=== PATIENT | male | born 1970 | race Two or more races ===

== ENCOUNTER 2025-02-28 17:40 | Inpatient (IN) | payer MEDICAID, SELFPAY ==
[2025-02-28 17:43] VITALS: BMI 25.4
[2025-02-28 17:51] VITALS: BP 122/86; PULSE 72; RESP 18; TEMP 36.9; O2SAT 99
--- NOTE | 2025-02-28 17:51 | PC.NURSE ---
Patient to er in Triage alert called stroke alert, patient c/o weakness, blurry vision, and dizziness since 1339, patient was work eating with sudden onset of symptoms. patient to ct via radha with Rosie SAMS, teleneurology activated
--- NOTE | 2025-02-28 17:53 | PD.EDRME ---
Rapid Medical Screening Exam RME Arrival date/time: 02/28/25 17:40 Chief Complaint: Neuro Symptoms/Deficit Vital signs: Vital Signs Temperature 98.4 F 02/28/25 17:51 Pulse Rate 72 02/28/25 17:51 Respiratory Rate 18 02/28/25 17:51 Blood Pressure 122/86 H 02/28/25 17:51 Pulse Oximetry (%) 99 02/28/25 17:51 Oxygen Delivery Method Room Air 02/28/25 17:51 RME Narrative: 54-year-old male with no known past medical history or allergies presents to the Emergency Department with sudden onset of dizziness and generalized weakness that began at approximately 1:40 PM. He also reports mild bilateral blurred vision. Blood glucose was 241. Exam is nonfocal.
--- NOTE | 2025-02-28 17:54 | XR_ITS ---
Examination: CTA carotids with intravenous contrast CTA brain, head with intravenous contrast. 2-D sagittal, coronal reconstructions. 3-D reconstructions. Exam date and time: February 28, 2025, 1817 hrs. Indications: Stroke alert, onset blurred vision generalized weakness today CTDI: vol (mGy) 29.2 DLP: (mGycm) 479 Technique: Multiple CTA axial brain, head carotid images post intravenous contrast injection 100 cc, [id number]. 2-D sagittal, coronal reconstructions. 3-D reconstructions, 3-D post processing including vascular maximum intensity projection images. Low dose protocols were performed. One or more of the following dose reduction techniques were used; automated exposure control, adjustment of the mA and/or KV according to patient size, use of iterative reconstruction technique. Findings: No significant common carotid carotid bifurcation or internal carotid artery stenoses Dominant right vertebral artery in the neck with no critical stenoses Intracranial vertebral arteries basilar artery and posterior cerebral branches fill with no large vessel occlusions Juxtasellar portions internal carotid arteries M1 segments middle cerebral arteries middle cerebral artery trifurcation vessels and anterior cerebral arteries fill with no large vessel occlusions Impression: No significant neck arterial stenoses No cerebral large vessel arterial occlusions or thrombus
--- NOTE | 2025-02-28 17:54 | XR_ITS ---
Examination: CT brain head without contrast. 2-D sagittal coronal reconstructions Date and time of exam:February 28, 2025, 1803 hrs. Indications: Stroke alert today CTDI: vol (mGy):50.2 DLP: (mGycm):978 Technique: Multiple CT axial sections of the brain have been obtained, 5 mm slice thickness. Contrast has not been administered. 2-D sagittal, coronal reconstructions have been obtained Low dose protocols were performed. One or more of the following dose reduction techniques were used; automated exposure control, adjustment of the mA and/or KV according to patient size, use of iterative reconstruction technique. Findings: No significant ventricular enlargement. Intra-axial or extra-axial hemorrhage density is not seen. No mass effect or midline shift Basal cisterns are not remarkable. Fourth ventricle is midline. Cranial vault intact. Impression: Negative for acute hemorrhage, mass effect or midline shift
--- NOTE | 2025-02-28 17:57 | EDNOTE_ITS ---
Neuro Symptoms Deficit-RME/HPI General Chief Complaint: Neuro Symptoms/Deficit Stated Complaint: BLURRY VISION AT 1300,DIZZY/SHAKING AT 1500 TODAY Time Seen by Provider: 02/28/25 17:56 Arrival date/time: 02/28/25 17:40 RME / HPI RME / HPI Narrative: 54-year-old male with past medical history of diabetes mellitus presents to the Emergency Department with sudden onset of dizziness and generalized weakness that began at approximately 1:40 PM. He also reports mild bilateral blurred vision. Blood glucose was 241. Exam is nonfocal. Denies any other complaints no medication was taken prior to ER visit. Patient denies any fall or trauma denies any fever. Denies any slurring of speech patient is ambulatory. Related Data Previous Rx's ?Medication ?Instructions ?Recorded metformin 500 mg tablet 500 mg PO BID #60 tabs 08/23 albuterol sulfate 90 mcg/actuation 2 inh inhalation Q4 H PRN 02/26/22 aerosol inhaler (Proventil HFA) bronchospasm #6.7 gram s azithromycin 250 mg tablet See Rx Instructions PO .COM PLEX #6 02/26/22 (Zithromax Z-Naldo) tabs promethazine-DM 6.25 mg-15 mg/5 mL 5 ml PO Q6H #240 mL 02/26/22 oral syrup Allergies Allergy/AdvReac Type Severity Reaction Status Date / Time No Known Allergies Allergy Verified 02/28/25 17:46 Review of Systems Review of Systems Narrative Review of Systems: Review of system reviewed and within normal limits except mentioned in HPI ED Exam Narrative Physical exam: VITAL SIGNS: Reviewed. GENERAL APPEARANCE: Alert and interactive, follows commands, no acute distress, HEAD AND FACE: Non-traumatic. ENT: PERRL, pink conjunctivitis, eyelid no trauma, Mucous membrane moist. NECK: Supple, nontender, no nuchal rigidity. CHEST: No tenderness, no crepitus, no paradoxical movement, no retractions. LUNGS: Clear, well ventilated, symmetric, no rales, no wheezing, no ronchi, no stridor, good breath sounds bilaterally. HEART: Regular rate, regular rhythm, no murmur, no gallops. ABDOMEN: Soft, positive bowel sounds, nondistended, no guarding, nontender, no rebound, no masses, RECTAL: Deferred. GENITAL: Deferred. NEUROLOGICAL: Gross motor function intact sensory function intact, Appropriate for age. MUSCULOSKELETAL: low back nontender, full range of motion. EXTREMITIES: Nontender, full range of motion. SKIN: Color pink, dry, no rash, no lacerations, no abrasions, no contusions. LYMPHATICS: Deferred. Course Quality Measures none Orders Category Date Time Status Bedside Blood Glucose NOW Care 02/28/25 17:54 Active COVID-19 Screening Questionnaire NOW Care 02/28/25 20:17 Active Manager Trade NOW Care 02/28/25 17:54 Active Continuous Pulse Oximetry NOW Care 02/28/25 17:54 Completed Decision to Admit X1 Care 02/28/25 20:17 Active Insert IV NOW Care 02/28/25 17:54 Active NIH Stroke Scale now Care 02/28/25 17:54 Active NPO NOW Care 02/28/25 17:54 Active Neuro Check Q15MIN Care 02/28/25 17:54 Completed Nurse Swallow Screen x1 Care 02/28/25 17:54 Active Consult to Neurology / Tele-Neurology Routine Cons 02/28/25 17:[address] angio stroke protocol Stat Exams 02/28/25 17:[address] stroke protocol Stat Exams 02/28/25 17:54 Completed Alcohol, Blood Medical Stat Lab 02/28/25 17:57 Completed B-Type Natriuretic Peptide Stat Lab 02/28/25 17:57 Completed CBC Stat Lab 02/28/25 17:57 Completed Comprehensive Metabolic Panel Stat Lab 02/28/25 17:57 Completed Drug Screen,Urine Stat Lab 02/28/25 19:37 Received Magnesium Stat Lab 02/28/25 17:57 Completed Partial Thromboplastin Time Stat Lab 02/28/25 17:57 Completed Prothrombin Time with INR Stat Lab 02/28/25 17:57 Completed Troponin I Stat Lab 02/28/25 17:57 Completed Urinalysis Stat Lab 02/28/25 19:37 Completed Urine Culture Stat Lab 02/28/25 19:37 Received Aspirin [Ecotrin] Med 02/28/25 18:25 Discontinued 81 mg PO X1 ONE Sodium Chloride 0.9% 1000 ml [Ns] 1,000 ml Med 02/28/25 18:00 Active IV Q10H Vital Signs Vital signs: Vital Signs Temperature 98.4 F 02/28/25 17:51 Pulse Rate 72 02/28/25 17:51 Respiratory Rate 18 02/28/25 17:51 Blood Pressure 122/86 H 02/28/25 17:51 Pulse Oximetry (%) 99 02/28/25 17:51 Oxygen Delivery Method Room Air 02/28/25 17:51 Neuro Symptoms / Deficit MDM Narrative [facility] Narrative:: 54-year-old male with past medical history of diabetes mellitus presents to the Emergency Department with sudden onset of dizziness and generalized weakness that began at approximately 1:40 PM. He also reports mild bilateral blurred vision. Blood glucose was 241. Exam is nonfocal. Denies any other complaints no medication was taken prior to ER visit. Patient denies any fall or trauma denies any fever. Denies any slurring of speech patient is ambulatory. Stroke alert was initiated right away. CT head came back unremarkable CT angiogram of the head and neck came back unremarkable. Patient's workup also came back normal. I was able to talk to the teleneurologist, who told me that patient is not a candidate for thrombolytics due to timeframe and symptoms is mild and resolving. Recommendation is just aspirin 81 mg p.o. Plan of care discussed with the patient who agrees to be admitted. Discussed case with hospitalist, who admitted the patient. Patient data External records reviewed:: None Clinical information provided by:: patient Social determinants that could affect healthcare access:: none Patient has the following chronic illnesses:: Diabetes mellitus How is presenting disease/condition affected by chronic disease/condition?: exacerbated by Evaluation data The following diagnostics were reviewed and interpreted by me:: lab results and radiology exam(s) Lab and/or radiology exams considered but not ordered:: None Interpretation Summary: See results [facility] Medications / Prescriptions Medications or Prescriptions considered but not ordered:: None Medication administrations:: Medication Administration History Sodium Chloride (Ns) 1,000 mls @ 60 mls/hr IV Q10H ANGEL Stop: 03/30/25 17:59 Last Admin: 02/28/25 19:20 Dose: 60 mls/hr Documented By: BD Discontinued Medications Aspirin (Aspirin Ec 81 Mg Tabec) 81 mg PO X1 ONE Stop: 02/28/25 18:26 Last Admin: 02/28/25 19:20 Dose: 81 mg Documented By: BD Aspirin IV fluids for hydration Consultations Consultation(s) initiated? (list below): Yes Consultation #1 (Physician, Specialty, Details): Teleneurologist thank you Diagnosis Neuro Differential Diagnosis: cerebrovascular accident, multiple sclerosis and transient cerebral ischemia Most likely diagnosis given after review of the tests above:: Strokelike symptoms Admission Indicated Admission indicated?: not indicated Admission Request Was there a request for admission?: Yes Admission Attestation Admission request attestation: Discussed case with Hospitalist service regarding admission. Discussed patients ED course, exam findings, labs, and radiology results. The Hospitalist [agrees to accept the patient for admission. Disposition Plan Disposition Plan: Transfer Discharge Plan Plan Patient Disposition: Admit Acute Care w/in Hospital Prescriptions/Referrals Prescriptions/Med Rec: No Action metformin 500 mg tablet 500 mg PO BID Qty: 60 0RF azithromycin [Zithromax Z-Naldo] 250 mg tablet See Rx Instructions PO .COMPLEX Qty: 6 0RF Rx Instructions: take 500 mg today (day 1), then 250 mg for 4 days (days 2-5) albuterol sulfate [Proventil HFA] 90 mcg/actuation HFA aerosol inhaler 2 inh inhalation Q4H PRN (Reason: bronchospasm) Qty: 6.7 0RF promethazine-DM 6.25-15 mg/5 mL syrup 5 ml PO Q6H Qty: 240 0RF Referrals: Saul Aldrich MD [Primary Care Provider] - In 1 week Problem List Clinical Impression: Stroke-like symptom Patient/Caregiver Discharge Instructions Print Language: Mohawk Stand Alone Forms: Genevieve Award Info., Patient Portal Info Letter
[2025-02-28 18:09] LABS: Basophils # (Auto) 0.0 Thou/mm3 (0.0-0.2); Basophils % (Auto) 0 % (0-2.5); Eosinophils # (Auto) 0.1 Thou/mm3 (0.0-0.5); Eosinophils % (Auto) 1 % (0-10); Hematocrit 41.0 % (41.0-53.0); Hemoglobin 14.1 g/dL (13.5-16.0); Immature Granulocytes Auto 0.04 Thou/mm3 (0.00-0.00); Lymphocytes # (Auto) 1.5 Thou/mm3 (1.0-4.8); Lymphocytes % (Auto) 19 % (10-50); Mean Corpuscular HGB Conc 34.4 g/dl (31.0-37.0); Mean Corpuscular Hemoglobin 32.1 pg (25.0-35.0); Mean Corpuscular Volume 93 fL (80-100); Monocytes # (Auto) 0.5 Thou/mm3 (0.0-0.8); Monocytes % (Auto) 7 % (0-12); Neutrophils # (Auto) 5.6 Thou/mm3 (1.8-7.7); Neutrophils % (Auto) 72 % (37-80); Nucleated Red Blood Cell # 0.00 Thou/mm3 (0.00-0.00); Nucleated Red Blood Cell % 0 /100 WBC (0); Platelet Count 245 Thou/mm3 (140-440); RDW Standard Deviation 42.4 fL (35.1-43.9); Red Blood Count 4.39 Miln/mm3 (4.50-5.90); White Blood Count 7.8 Thou/mm3 (3.8-10.6)
[2025-02-28 18:30] LABS: B-Type Natriuretic Peptide 20 pg/mL (0-100)
[2025-02-28 18:32] LABS: Alanine Aminotransferase 20 U/L (10-49); Albumin, Serum 4.1 gm/dL (3.5-5.0); Albumin/Globulin Ratio 1.7 (1.2-2.2); Alcohol, Blood Medical < 3.0 mg/dL (0-10.0); Alkaline Phosphatase 133 U/L (46-116); Anion Gap 11 (7-16); Aspartate Amino Transferase 23 U/L (0-34); BUN/Creatinine Ratio 14 Ratio (12-20); Bilirubin,Total 0.9 mg/dL (0.3-1.2); Blood Urea Nitrogen 13 mg/dL (9-23); Calcium 9.4 mg/dL (8.3-10.6); Calcium (Corrected) 9.4 mg/dL (8.5-10.1); Carbon Dioxide 24.6 mMol/L (20.0-31.0); Chloride 103 mMol/L (98-107); Creatinine (Component) 0.9 mg/dL (0.6-1.3); Estimated Creatinine Clearance 79.5 mL/min (>60); Globulin 2.4 gm/dL (2.3-3.5); Glucose 234 mg/dL (74-106); INR 0.9 (0.9-1.3); Magnesium 1.8 mg/dL (1.6-2.6); Osmolality,Calculated 285 (275-295); Partial Thromboplastin Time 25.5 Seconds (22.0-36.0); Potassium 3.8 mMol/L (3.4-5.1); Prothrombin Time 9.8 Seconds (9.0-12.2); Sodium 139 mMol/L (136-145); Total Protein 6.5 gm/dL (5.7-8.2); Troponin I < 0.002 ng/mL (0.0-0.045); eGFR > 60 See Note
--- NOTE | 2025-02-28 18:34 | ESCONSULT_ITS ---
Tele Neuro Consultation Consultation Date 02/28/25 Most Recent Vital Signs Last Vital Signs Temp 98.4 F 02/28/25 17:51 Pulse 72 02/28/25 17:51 Resp 18 02/28/25 17:51 BP 122/86 H 02/28/25 17:51 Pulse Ox 99 02/28/25 17:51 O2 Del Method Room Air 02/28/25 17:51 Laboratory-Coagulation Panel PT 9.8 Seconds (9.0-12.2) 02/28/25 17:57 INR 0.9 (0.9-1.3) 02/28/25 17:57 APTT 25.5 Seconds (22.0-36.0) 02/28/25 17:57 Consultation Narrative [facility] Patient Name:???GROVER STOVER Date of :???1970 Identification Number:??? Date of Service:???02/28/2025 17:54:15 Diagnosis:?H53.8 - Blurred Vision ?R42 - Dizziness/ Vertigo/ Giddiness Impression: ?54 y/o man with diabetes who presents w/ dizziness/spinning, blurred vision, generalized weakness. He is improving but not back to baseline. ? ??posterior circulation TIA vs metabolic derangement ? ?No thrombolytic/out of window and symptoms resolving/nondisabling. Will be admitted for further workup. Our recommendations are outlined below. Recommendations: ? Stroke/Telemetry Floor ? Neuro Checks (Q4) ? Bedside Swallow Eval ? DVT Prophylaxis ? IV Fluids, Normal Saline ? Head of Bed 30 Degrees ? Euglycemia and Avoid Hyperthermia (PRN Acetaminophen) ? Initiate or continue Aspirin 81 MG daily ? Antihypertensives PRN if Blood pressure is greater than 220/120 or there is a concern for End organ damage/contraindications for permissive HTN. If blood pressure is greater than 220/120 give labetalol PO or IV or Vasotec IV with a goal of 15% reduction in BP during the first 24 hours. ?MRI brain w/o ?Routine cta head/neck Sign Out: ? Discussed with Emergency Department Provider Advanced Imaging:Advanced Imaging Deferred because: Non-disabling symptoms as verified by the patient; no cortical signs so not consistent with LVO Metrics: Last Known Well: 02/28/2025 13:40:00 Dispatch Time: 02/28/2025 17:54:15 Arrival Time: 02/28/2025 17:40:00 Initial Response Time: 02/28/2025 18:00:29Symptoms: dizziness/spinning, blurred vision, generalized weakness . Initial patient interaction: 02/28/2025 18:00:30 NIHSS Assessment Completed: 02/28/2025 18:12:36Patient is not a candidate for Thrombolytic. Thrombolytic Medical Decision: 02/28/2025 18:12:37Patient was not deemed candidate for Thrombolytic because of following reasons: LKW outside 4.5 hr window. . Stroke severity too mild (non-disabling) . CT Head: I personally reviewed all the CT images that were available to me and it showed: no acute process Primary Provider Notified of Diagnostic Impression and Management Plan on: 02/28/2025 18:33:10 History of Present Illness:Patient is a 54 year old Male. Patient was brought by private transportation with symptoms of dizziness/spinning, blurred vision, generalized weakness . Grover Stover is a 54 y/o man with diabetes who presents w/ dizziness/spinning, blurred vision, generalized weakness. 13:40 while eating lunch is time of symptom onset.When describing the dizziness, the patient clarified that everything was just turning rather than feeling lightheaded. The patient wondered if their blood sugar had dropped, despite having just eaten but didn't check it. The patient was able to walk into the emergency department and could stand and transfer to the bed independently. The patient indicates that the symptoms, particularly the blurry vision and dizziness, are still present but a little less intense than at onset. ? Past Medical History: ?Diabetes Mellitus Medications: No Anticoagulant use? No Antiplatelet use Reviewed EMR for current medications Allergies:? Reviewed Social History: Smoking: No Alcohol Use: No Family History: There is no family history of premature cerebrovascular disease pertinent to this consultation ROS : 14 Points Review of Systems was performed and was negative except mentioned in HPI. Past Surgical History: There Is No Surgical History Contributory To Today?s Visit ? Examination: BP(115/67),?Pulse(72),?Blood Glucose(242) 1A: Level of Consciousness - Alert; keenly responsive?+ 0 1B: Ask Month and Age - Both Questions Right?+ 0 1C: Blink Eyes & Squeeze Hands - Performs Both Tasks?+ 0 2: Test Horizontal Extraocular Movements - Normal?+ 0 3: Test Visual Lewis - No Visual Loss?+ 0 4: Test Facial Palsy (Use Grimace if Obtunded) - Normal symmetry?+ 0 5A: Test Left Arm Motor Drift - No Drift for 10 Seconds?+ 0 5B: Test Right Arm Motor Drift - No Drift for 10 Seconds?+ 0 6A: Test Left Leg Motor Drift - No Drift for 5 Seconds?+ 0 6B: Test Right Leg Motor Drift - No Drift for 5 Seconds?+ 0 7: Test Limb Ataxia (FNF/Heel-Evans) - No Ataxia?+ 0 8: Test Sensation - Normal; No sensory loss?+ 0 9: Test Language/Aphasia - Normal; No aphasia?+ 0 10: Test Dysarthria - Normal?+ 0 11: Test Extinction/Inattention - No abnormality?+ 0 NIHSS Score:?0 NIHSS Free Text :?nml gait Pre-Morbid Modified Destiny Scale: 0 Points = No symptoms at all Spoke with :?Trey This consult was conducted in real time using interactive audio and video technology. Patient was informed of the technology being used for this visit and agreed to proceed. Patient located in hospital and provider located at home/office setting. Patient is being evaluated for possible acute neurologic impairment and high probability of imminent or life-threatening deterioration. I spent total of 33 minutes providing care to this patient, including time for face to face visit via telemedicine, review of medical records, imaging studies and discussion of findings with providers, the patient and/or family. Dr Mirna Winslow [facility] For Inpatient follow-up with [facility] physician please call [facility] at . As we are not an outpatient service for any post hospital discharge needs please contact the hospital for assistance. If you have any questions for the [facility] physicians or need to reconsult for clinical or diagnostic changes please contact us via [facility] at . Signature :?Mirna Winslow ?
--- NOTE | 2025-02-28 18:35 | PC.NURSE ---
Patient back from ct and taken to room 2, Per LATRELL Velez, patient 0 on NIH scale and patient not a candidate for TNKASE. Currently, patient denies pain, skin warm dry and pink, alert and oriented x 3.
[2025-02-28 18:46] VITALS: PULSE 69
[2025-02-28] MEDS: SODIUM CHLORIDE 0.9% 1000 ML 1,000 ML 60 ML IV (19:20)
[2025-02-28] MEDS: ASPIRIN EC 81 MG TABEC PO (19:20)
--- NOTE | 2025-02-28 19:21 | PC.NURSE ---
per love longoria director security management ok to cancel neuro checks as not needed at this time
--- NOTE | 2025-02-28 19:29 | PC.NURSE ---
called [facility] spoke with abigail SANTILLAN as pt had questions as to when he would be discharged advised that i am not sure at this time when he will be discharged had to keep explaining that he just got here and that it will take time to see if he will stay or when he would go. as he just got a new job and is worrying about work, advised that we cant keep him here but he should wait for review as he just got here he keeps asking over and over when he will be discharged advised multiple times it is still to early as he just got here and the providers will notify him and go over everything if he is going to stay and how long.
[2025-02-28 19:47] LABS: Collection Type, Urine Catheter; Squamous Epithelial Cell,Urine 0 /hpf (0-5)
[2025-02-28 20:03] LABS: Bilirubin,Urine Negative (Negative); Blood,Urine Negative (Negative); Clarity,Urine Clear (Clear/Hazy); Color,Urine Lt-Yellow (Lt Yel-Yel); Glucose, Urine 4+ (Negative); Ketones,Urine Negative (Negative); Leukocyte Esterase,Urine Negative (Negative); Nitrite,Urine Negative (Negative); PH,Urine 6.0 (5.0-7.0); Protein,Urine Negative (Neg - Trace); RBC,Urine 4 /hpf (0-3); Urobilinogen,Urine Negative mg/dL (0.0-1.0); WBC,Urine 1 /hpf (0-5)
[2025-02-28 20:06] LABS: Specific Gravity,Urine 1.015 (1.001-1.035)
--- NOTE | 2025-02-28 20:46 | EKG_ITS ---
[facility] Test Date: 2025-02-28 Pat Name: CYN NEAL Department: Room: - Gender: Male Service Crew Supervisor: : 1970 Requested By: Wai Yang Order Number: [id number] Reading MD: Wai Yang Measurements Intervals [place] Rate: 55 P: 50 OR: 158 QRS: 26 QRSD: 98 T: 29 QT: 375 QTc: 360 Interpretive Statements SINUS BRADYCARDIA Compared to ECG 08/22/2021 19:44:32 Sinus rhythm no longer present /store/S0/[id number].pdf
--- NOTE | 2025-02-28 20:52 | ECHO_ITS ---
Transthoracic Echo Report Ht (in): 64 Wt (lb): 148 Exam Location: Echo Lab Status: Inpatient Visor Installer: Marisa Barraza Indications: Procedure Performed: BP: 103 / 67 HR: 55 MEASUREMENTS (Male / Female) Normal Values 2D ECHO LV Diastolic Diameter PLAX 4.6 cm 4.2 - 5.9 / 3.9 - 5.3 cm LV Systolic Diameter PLAX 2.8 cm IVS Diastolic Thickness 0.9 cm 0.6 - 1.0 / 0.6 - 0.9 cm LVPW Diastolic Thickness 1.2 cm 0.6 - 1.0 / 0.6 - 0.9 cm LV Relative Wall Thickness 0.5 LVOT Diameter 1.9 cm LA Volume Index 29.2 cm?/m? 16 - 28 cm?/m? Ascending Aorta Diameter 3.5 cm M-MODE AV Cusp Separation MM 1.4 cm DOPPLER AV Peak Velocity 163.0 cm/s AV Peak Gradient 10.6 mmHg AV Mean Gradient 6.0 mmHg AV Velocity Time Integral 34.1 cm LVOT Peak Velocity 109.0 cm/s LVOT Peak Gradient 4.8 mmHg LVOT Velocity Time Integral 22.5 cm LVOT Cardiac Index 2000.8 cm?/min?m? AV Area Cont Eq vti 1.9 cm? AV Area Cont Eq pk 1.9 cm? MV Area PHT 2.9 cm? Mitral E Point Velocity 71.6 cm/s Mitral A Point Velocity 84.0 cm/s Mitral E to A Ratio 0.9 LV E' Lateral Velocity 11.0 cm/s Mitral E to LV E' Lateral Ratio 6.5 LV E' Septal Velocity 8.4 cm/s Mitral E to LV E' Septal Ratio 8.5 TR Peak Velocity 267.5 cm/s TR Peak Gradient 28.6 mmHg PV Peak Velocity 109.0 cm/s PV Peak Gradient 4.8 mmHg FINDINGS Left Ventricle Normal left ventricular size, wall thickness, systolic function with no obvious regional wall motion abnormalities. Normal left ventricular diastolic filling pattern for age. The ejection fraction is visually estimated at 60-65 %. Right Ventricle The right ventricle is normal in size and systolic function. The estimated right ventricular systolic pressure, 24 mmHg with RAP 3 Left Atrium The left atrium is normal by two-dimensional, color flow and Doppler imaging with no structural abnormalities, no thrombus formation present. Right Atrium The right atrium is normal by two-dimensional imaging, color flow and Doppler imaging with no structural abnormalities, no thrombus formation present. Atrial Septum The interatrial septum appears normal with no evidence of a shunt. Aorta The aorta is normal by two-dimensional, color flow and Doppler interrogation. Mitral Valve The mitral valve is normal by two-dimensional, color flow and Doppler interrogation. There is no significant mitral valve regurgitation, stenosis or prolapse. Aortic Valve The aortic valve is trileaflet and normal by two-dimensional, color flow and Doppler interrogation. There is no significant aortic valve regurgitation. Tricuspid Valve The tricuspid valve is normal by two-dimensional, color flow and Doppler interrogation. There is mild tricuspid valve regurgitation. Pulmonic Valve The pulmonic valve is not well visualized. There is no significant pulmonic valve regurgitation. Vessels The pulmonary artery appears normal. The inferior vena cava pulmonary and hepatic veins appear normal. Pericardium The pericardium is normal by two-dimensional imaging. There is no significant pericardial effusion. CONCLUSIONS Indication: stroke r/o Bubble study not performed. Normal left ventricular size and function. Approximate ejection fraction is 60- 65%. Normal diastolic function. Normal right ventricular size and function. Trace tricuspid regurgitation noted. No wall motion abnormalities noted. Jameel Thomas (Electronically Signed) Final Date: 03 March 2025 08:50
[2025-02-28] MEDS: ATORVASTATIN CALCIUM 20 MG TABLET 80 MG PO (21:10)
[2025-02-28] MEDS: INSULIN LISPRO (AdmeLOG) 1 UNIT/0.01 ML UNIT SC (21:11)
[2025-02-28 21:23] LABS: Amphetamine/Methamp Scrn,U Negative (Negative); Barbiturate Screen,Urine Negative (Negative); Benzodiazepines Screen,Urine Negative (Negative); Benzoylecgonine Screen, Ur Negative (Negative); Fentanyl Screen,Urine Negative (Negative); Opiate Screen,Urine Negative (Negative); THC Screen,Urine Negative (Negative)
--- NOTE | 2025-02-28 21:23 | ESHP_ITS ---
<Statement entered by Rodri Riggs MD - 03/01/25 03:14> 54-year-old male with past medical history of DM2 was admitted to hospital due to stroke rule out. Patient had an episode of blurry vision accompanied with feelings of nervousness and tremors around 1:40 PM today and symptoms improve after he ate. Patient stated that these episodes have passed and for the past week and they get better after he ate. At the time of assessment patient's symptoms had resolved, teleneurology recommended aspirin 81 mg daily along with further metabolic workup and MRI. Head CT and CTA were negative and no LVO. Started aspirin and atorvastatin, ISS, permissive hypertension, neuro consulted. I have personally examined the patient. Note reviewed and agree with care plan as documented please refer to the note below for further details. Case disclosed with Attending Dr. Caitlin Riggs PGY2 Disclaimer: Even though this this note was dictated by speech recognition and even though it was carefully revised there may still be minor errors in sap abap programmer due to voice recognition software. Documentation for date of: 02/28/25 HPI History of Present Illness Chief complaint: nervousness, weakness and blurry vision History of present illness: Mr. Stover is a 54 year-old with past medical history of type 2 diabetes who presented to the ED on 02/10/2025 with with chief complaint of weakness, nervousness and blurry vision. Patient reports prior to 1:40 PM he had generalized weakness with blurry vision, and felt anxious. He denies any diaphoresis, slurred speech and dysphagia. After the episode he had lunch and the symptoms subsided. Reports previous history of the same presentation that resolved after eating. Per patient, does not check his glucose often at home, last check was day prior and noted that to be lower than baseline. Patient reports that the blurry vision is not an acute complaint, his vision has been blurry for few days. The blurry vision improved after he started using prescription glasses, recommended by his coworker. Patient denies experiencing any visual disturbances such as pinpoint vision or curtain for vision. Patient denies headache, dizziness, lightheadedness, chest palpitation, abdominal pain, nausea, vomiting, urinary symptoms and tingling sensation. ED Course: -Initial vitals were BP 122/86, pulse 72, RR 18, temp 98.4, O2 sat 90% on room air -Labs significant for glucose 234, alkaline phosphatase 133. UA positive for glucose 4+ and 4 RBC - Imaging included a CT head negative for acute hemorrhage, Head/neck CTA negative for arterial stenosis provide EKG showed sinus bradycardia with rate 55 -In the ED, patient was given 1 L NS and aspirin 81 mg x 1 -Patient was admitted for CVA workup. Review of Systems Review of systems otherwise negative except what is mentioned above. Past Medical History: Mentioned above Family History: Noncontributory Surgical History: None Social History: Denies history of smoking, denies current alcohol use, denies recreational drug use Current Medications: Metformin, pioglitazone Allergies: No known drug allergies Exam Vital Signs Temp Pulse Resp BP Pulse Ox O2 Del Method 98.4 F 69 18 122/86 H 99 Room Air 02/28/25 17:51 02/28/25 18:46 02/28/25 17:51 02/28/25 17:51 02/28/25 17:51 02/28/25 17:51 Narrative Exam General: Alert, no acute distress.Conversational and non-toxic appearing. Skin: Warm, dry, intact. No rash or ecchymoses. Head: Normocephalic, atraumatic. Eye: Normal conjunctiva, PERRL. Throat: Oral mucosa moist. No obvious lesions in oropharynx. Cardiovascular: Regular rate and rhythm, no murmur, +S1/S2. Respiratory: Lungs are clear to auscultation, respirations unlabored, no crackles, no wheezing. Gastrointestinal: Soft, nontender, non-distended. No guarding or rebound tenderness. Extremities: No edema, no cyanosis, no clubbing. Neuro: Alert and oriented x3.No focal deficits observed. Conversant, moving all extremities. No overt cerebellar signs/incoordination. Psychiatric: Cooperative, appropriate affect Results: Labs 03/01/25 04:34 03/01/25 04:34 Labs: Short CBC 02/28/25 Range/Units 17:57 WBC 7.8 (3.8-10.6) Thou/mm3 Hgb 14.1 (13.5-16.0) g/dL Hct 41.0 (41.0-53.0) % Plt Count 245 (140-440) Thou/mm3 BMP 02/28/25 17:57 Sodium 139 Potassium 3.8 Chloride 103 Carbon Dioxide 24.6 BUN 13 Creatinine 0.9 Glucose 234 H Calcium 9.4 Cardiac Enzymes 02/28/25 Range/Units 17:57 Troponin I < 0.002 (0.0-0.045) ng/mL Liver Function 02/28/25 Range/Units 17:57 Total Bilirubin 0.9 (0.3-1.2) mg/dL AST 23 (0-34) U/L ALT 20 (10-49) U/L Alkaline Phosphatase 133 H (46-116) U/L Albumin 4.1 (3.5-5.0) gm/dL Urine 02/28/25 Range/Units 19:37 Urine Color Lt-Yellow (Lt Yel-Yel) Urine Clarity Clear (Clear/Hazy) Urine pH 6.0 (5.0-7.0) Ur Specific [place] 1.015 (1.001-1.035) Urine Protein Negative (Neg - Trace) Urine Glucose (UA) 4+ A (Negative) Quality Measures Quality Measures none Medications Home Medications and Allergies Home Medications ?Medication ?Instructions ?Recorded ?Confirmed ?Type empagliflozin 25 mg tablet 25 mg PO QDAY 03/01/2502/10 History (Jardiance) metformin 500 mg tablet 850 mg PO TID 03/01/2503/01 History Allergies Allergy/AdvReac Type Severity Reaction Status Date / Time No Known Allergies Allergy Verified 02/28/25 17:46 Visit Medications Aspirin (Aspirin Ec 81 Mg Tabec) 81 mg PO QDAY ANGEL Stop: 03/31/25 08:59 Atorvastatin Calcium (Atorvastatin Calcium 20 Mg Tablet) 80 mg PO HS ANGEL Stop: 03/30/25 20:59 Last Admin: 02/28/25 21:10 Dose: 80 mg Dextrose (Dextrose 50%-Water Inj 50 Ml Syringe) 25 ml IV Q15MIN PRN PRN Reason: BG 50-70 responsive npo pt Stop: 03/30/25 20:59 Dextrose (Dextrose 50%-Water Inj 50 Ml Syringe) 50 ml IV Q15MIN PRN PRN Reason: BG <50 OR BG <70 & pt unresponsive Stop: 03/30/25 20:59 Glucagon (Glucagon Inj 1 Mg Vial) 1 mg IM Q15MIN PRN PRN Reason: BG <70, and no IV access Insulin Human Lispro (Insulin Lispro (Admelog) 1 Unit/0.01 Ml Unit) 0 unit SC ACHS ANGEL; Protocol Stop: 03/30/25 20:59 Last Admin: 02/28/25 21:11 Dose: 1 unit Discontinued Medications Aspirin (Aspirin Ec 81 Mg Tabec) 81 mg PO X1 ONE Stop: 02/28/25 18:26 Last Admin: 02/28/25 19:20 Dose: 81 mg Sodium Chloride (Ns) 1,000 mls @ 60 mls/hr IV Q10H ANGEL Stop: 03/30/25 17:59 Last Admin: 02/28/25 19:20 Dose: 60 mls/hr Assessment & Plan Plan Mr. Stover is a 54 year-old with past medical history of type 2 diabetes who presented to the ED on 02/10/2025 with with chief complaint of weakness, nervousness and blurry vision. Admitted for CVA workup. # CVA workup Patient presented with 1 day of generalized weakness, nervousness and 4 to 5 days of blurry vision. Denies diaphoresis, chest palpitations and dizziness. The symptoms improved with meals and blurry vision improved after use of prescribed glasses. Patient has history of diabetes for which she does not monitor glucose check regularly. Patient presentation raise patient of possible hypoglycemic episodes. Neuro examination was normal. In the ED patient received aspirin 81 mg x 1. NIHSS Score:?0 CT head negative for acute hemorrhage CTA head/neck showed no significant neck artery stenosis -Neurologist Dr. Don was consulted and will follow, appreciate recommendations -Admitted to Telemetry -Head of bed elevation >45 degrees -Maintain euglycemia and normal temperature -Allow for permissive hypertension below 220/120 -Q4H neuro checks -Nurse swallow screen -Speech evaluation -PT evaluation -Echocardiography with bubble study ordered -MRI brain with and without contrast ordered -Hemoglobin A1c -Lipid panel -TSH level -Started aspirin 81 mg daily -Started atorvastatin 40 mg HS daily # Scg-[id number] type 2 diabetes On admission glucose 275. Patient does not regularly check his own glucose. No A1c on file. No medication metformin and pioglitazone. UA positive for 4+ glucose - Started insulin sliding - Glucose check ACHS - Diabetic education - A1c, pending - Beta hydroxybutyrate, pending #Asymptomatic bradycardia EKG showed sinus bradycardia with rate 55. Patient denies chest pain, chest palpitation and dizziness. - Continue to monitor on telemetry Hospital management: Lines: peripheral IV Diet: Carbohydrate DVT prophylaxis: Heparin SC Disposition: tele for CVA workup CODE STATUS: Full code Patient seen and assessed under supervision of attending physician and discuss with senior resident Dr. Rivera PGY-2 Bria Salomon MD PGY-1, Internal Medicine Please note: this document was transcribed using voice recognition technology; minor inaccuracies may be present. Attending Provider Attestation/Addendum After examination of the patient and review of the clinical data I feel that this patient needs admission to the hospital for further treatment/evaluation. Plan of care discussed with patient and is in agreement. I Víctor Tucker MD, attest that I was physically present for banks portions of evaluation, and examined patient, labs and imagings and plan of care were discussed with IM residents team, and I agree with the findings and plans documented above.
[2025-02-28 21:34] VITALS: BP 108/65; PULSE 54; RESP 15; TEMP 36.9; O2SAT 99
[2025-02-28 22:09] LABS: Beta Hydroxybutyrate 0.1 mmol/L (<0.6)
--- NOTE | 2025-02-28 22:16 | PD.EDADDENDU ---
Emergency Room Addendum Addendum Narrative: EKG's interpreted by me Showed sinus bradycardia, ventricular rate of 55 bpm, no ST segment elevation or depression noted.
[2025-03-01] VITALS: BP 101/69; PULSE 53; PULSE 56; RESP 14; TEMP 36.4; O2SAT 97
[2025-03-01] MEDS: HEPARIN SOD INJ 5000 UNIT/ML VIAL SC ×3 (00:15→20:16)
--- NOTE | 2025-03-01 02:47 | PC.NURSE ---
Spoke to pt about med rec. He stated family will bring in home meds tomorrow as he was unsure on dosages.
[2025-03-01 04:00] VITALS: BP 97/64; PULSE 50; PULSE 51; RESP 17; TEMP 36.7; O2SAT 98
--- NOTE | 2025-03-01 04:42 | PC.NURSE ---
Spoke to Dr Rivera regarding patients heart rate dropping to 46 while sleeping. No new orders.
[2025-03-01 05:31] LABS: Basophils # (Auto) 0.0 Thou/mm3 (0.0-0.2); Basophils % (Auto) 0 % (0-2.5); Eosinophils # (Auto) 0.1 Thou/mm3 (0.0-0.5); Eosinophils % (Auto) 2 % (0-10); Hematocrit 40.9 % (41.0-53.0); Hemoglobin 14.0 g/dL (13.5-16.0); Immature Granulocytes Auto 0.02 Thou/mm3 (0.00-0.00); Lymphocytes # (Auto) 1.7 Thou/mm3 (1.0-4.8); Lymphocytes % (Auto) 29 % (10-50); Mean Corpuscular HGB Conc 34.2 g/dl (31.0-37.0); Mean Corpuscular Hemoglobin 32.2 pg (25.0-35.0); Mean Corpuscular Volume 94 fL (80-100); Monocytes # (Auto) 0.5 Thou/mm3 (0.0-0.8); Monocytes % (Auto) 8 % (0-12); Neutrophils # (Auto) 3.6 Thou/mm3 (1.8-7.7); Neutrophils % (Auto) 61 % (37-80); Nucleated Red Blood Cell # 0.00 Thou/mm3 (0.00-0.00); Nucleated Red Blood Cell % 0 /100 WBC (0); Platelet Count 192 Thou/mm3 (140-440); RDW Standard Deviation 43.3 fL (35.1-43.9); Red Blood Count 4.35 Miln/mm3 (4.50-5.90); White Blood Count 6.0 Thou/mm3 (3.8-10.6)
[2025-03-01 05:52] VITALS: BMI 24.7
[2025-03-01 05:53] LABS: Alanine Aminotransferase 16 U/L (10-49); Albumin, Serum 3.7 gm/dL (3.5-5.0); Albumin/Globulin Ratio 1.6 (1.2-2.2); Alkaline Phosphatase 95 U/L (46-116); Anion Gap 7 (7-16); Aspartate Amino Transferase 19 U/L (0-34); BUN/Creatinine Ratio 13 Ratio (12-20); Bilirubin,Total 1.1 mg/dL (0.3-1.2); Blood Urea Nitrogen 9 mg/dL (9-23); Calcium 8.9 mg/dL (8.3-10.6); Calcium (Corrected) 9.1 mg/dL (8.5-10.1); Carbon Dioxide 25.9 mMol/L (20.0-31.0); Cardiac Risk Estimate 3.8 RATIO (4.0-6.7); Chloride 107 mMol/L (98-107); Cholesterol 144 mg/dL (132-200); Creatinine (Component) 0.7 mg/dL (0.6-1.3); Estimated Creatinine Clearance 102.2 mL/min (>60); Globulin 2.3 gm/dL (2.3-3.5); Glucose 126 mg/dL (74-106); HDL Cholesterol 38 mg/dL (40-60); LDL Cholesterol,Calculated 94 mg/dL (0-130); Magnesium 1.8 mg/dL (1.6-2.6); Osmolality,Calculated 280 (275-295); Phosphorous 3.7 mg/dL (2.4-5.1); Potassium 3.8 mMol/L (3.4-5.1); Sodium 140 mMol/L (136-145); Thyroid Stimulating Hormone 2.15 uIU/mL (0.55-4.78); Total Protein 6.0 gm/dL (5.7-8.2); Triglycerides 59 mg/dL (30-150); eGFR > 60 See Note
[2025-03-01 06:02] LABS: Glucose Estimated Average 355 mg/dL (80-131); Hemoglobin A1C > 14.0 % Hgb (4.8-6.0)
[2025-03-01 08:00] VITALS: BP 104/67; PULSE 53; PULSE 73; RESP 18; TEMP 36.4; O2SAT 98
[2025-03-01] MEDS: ASPIRIN EC 81 MG TABEC PO (08:01)
--- NOTE | 2025-03-01 10:38 | ESPR_ITS ---
<Statement entered by Wyatt Howell MD - 03/05/25 17:39> I reviewed above note and agree with findings and plans. I have also personally examined the patient with medicine team and went over assessment and plan with medical team including equine internship and resident physician. <Statement entered by Shannon Silva MD - 03/01/25 15:28> Patient examined at bedside. Blurry vision has resolved since his admission overnight. States that he is feeling much better with resolved tremors and less anxiety. A1c greater than 14, glucose 126 on morning labs.Other labs unremarkable. Blurry vision likely due to TIA versus metabolic causes such as his hyperglycemia. Will go for stroke including CT head and CTA head/neck negative with no occlusions or thrombus. Will complete workup with echo and MRI of the brain. Plan to discontinue his home pioglitazone at time of discharge. He was extensively counseled on importance of controlling his diabetes. Patient expressed understanding. Will continue to optimize sugars during hospitalization with 3 units long acting insulin and SSI. Anticipate discharge next 24hrs. The patient's management plan was discussed with my attending physician Dr. Howell. Shannon Silva MD, PGY-2 Documentation for date of: 03/01/25 Subjective Subjective Interval history: Patient examined at bedside, NAOE. He states he felt dizzy with progressively blurred vision last , denying prolonged exposure to the hot sun. He is currently asymptomatic and wondering if he can go home today. Worked up for stroke in the ED, CT head and CTA negative for acute ICH or stroke. Hgb A1c was > 14. Patient takes home metformin. Started 3U insulin degludec Aspirin and atorvastatin started. Pending MRI and Echo bubble study for work up of possible TIA. Exam Vital Signs Temp Pulse Resp BP Pulse Ox O2 Del Method 97.5 F 53 L 18 104/67 98 Room Air 03/01/25 08:00 03/01/25 08:00 03/01/25 08:00 03/01/25 08:00 03/01/25 08:00 03/01/25 08:00 Narrative Exam General: Middle aged patient, no acute distress, HEENT: Mucosa moist. Fair dentition, no oropharyngeal lesions. Pupils are equal and reactive to light bilaterally Cardiovascular: Normal S1 and S2. Regular rate and rhythm. No murmur appreciated Respiratory: Clear to auscultation bilaterally without wheezes or crackles. Abdomen: Soft, nontender, not distended, Skin: Dry, no rashes or bruising Musculoskeletal: No gross injuries. Able to move all 4 extremities. Non edematous lower extremities. Neuro: Alert and oriented x3. No focal neuro deficits. Negative for pronator drift and heel to manjarrez test. Psych: Normal affect and mood Objective Labs 03/01/25 04:34 03/01/25 04:34 Labs: Laboratory Results - last 24 hr 02/28/25 02/28/25 02/28/25 17:57 19:37 21:45 WBC 7.8 RBC 4.39 L Hgb 14.1 Hct 41.0 MCV 93 MCH 32.1 MCHC 34.4 RDW Std Deviation 42.4 Plt Count 245 Neut % (Auto) 72 Lymph % (Auto) 19 [place]es % (Auto) 7 Eos % (Auto) 1 Baso % (Auto) 0 Neut # (Auto) 5.6 Lymph # (Auto) 1.5 Mayes # (Auto) 0.5 Eos # (Auto) 0.1 Baso # (Auto) 0.0 Immature Gran # (Auto) 0.04 H Absolute Nucleated RBC 0.00 Immature Gran % 1 H Nucleated RBC % 0 PT 9.8 INR 0.9 APTT 25.5 Sodium 139 Potassium 3.8 Chloride 103 Carbon Dioxide 24.6 Anion Gap 11 BUN 13 Creatinine 0.9 Estim Creat Clear Calc 79.5 eGFR > 60 BUN/Creatinine Ratio [address] Glu mg/dL Hemoglobin A1c Calculated Osmolality 285 Calcium 9.4 Corrected Calcium 9.4 Phosphorus Magnesium 1.8 Total Bilirubin 0.9 AST 23 ALT 20 Alkaline Phosphatase 133 H Troponin I < 0.002 B-Natriuretic Peptide 20 Total Protein 6.5 Albumin 4.1 Globulin 2.4 Albumin/Globulin Ratio 1.7 Triglycerides Cholesterol LDL Cholesterol, Calc HDL Cholesterol Cholesterol/HDL Ratio Beta-Hydroxybutyrate/Acetoacetate 0.1 TSH Ur Collection Type Catheter Urine Color Lt-Yellow Urine Clarity Clear Urine pH 6.0 Ur Specific [place] 1.015 Urine Protein Negative Urine Glucose (UA) 4+ A Urine Ketones Negative Urine Blood Negative Urine Nitrite Negative Urine Bilirubin Negative Urine Urobilinogen (Auto) Negative Ur Leukocyte Esterase Negative Urine RBC 4 H Urine WBC 1 Ur Squamous Epith Cells 0 Urine Bacteria None Urine Opiates Screen Negative Urine Fentanyl Screen Negative Ur Barbiturates Screen Negative U Amphetamin/Meth Scrn Negative U Benzodiazepines Scrn Negative U Cocaine Metab Screen Negative U Marijuana (THC) Screen Negative Ethyl Alcohol < 3.0 03/01/25 04:34 WBC 6.0 RBC 4.35 L Hgb 14.0 Hct 40.9 L MCV 94 MCH 32.2 MCHC 34.2 RDW Std Deviation 43.3 Plt Count 192 D Neut % (Auto) 61 Lymph % (Auto) 29 [place]es % (Auto) 8 Eos % (Auto) 2 Baso % (Auto) 0 Neut # (Auto) 3.6 Lymph # (Auto) 1.7 Mayes # (Auto) 0.5 Eos # (Auto) 0.1 Baso # (Auto) 0.0 Immature Gran # (Auto) 0.02 H Absolute Nucleated RBC 0.00 Immature Gran % 0 Nucleated RBC % 0 PT INR APTT Sodium 140 Potassium 3.8 Chloride 107 Carbon Dioxide 25.9 Anion Gap 7 BUN 9 Creatinine 0.7 Estim Creat Clear Calc 102.2 eGFR > 60 BUN/Creatinine Ratio 13 Glucose [address] Glu mg/dL 355 H Hemoglobin A1c > 14.0 H Calculated Osmolality 280 Calcium 8.9 Corrected Calcium 9.1 Phosphorus 3.7 Magnesium 1.8 Total Bilirubin 1.1 AST 19 ALT 16 Alkaline Phosphatase 95 D Troponin I B-Natriuretic Peptide Total Protein 6.0 Albumin 3.7 Globulin 2.3 Albumin/Globulin Ratio 1.6 Triglycerides 59 Cholesterol 144 LDL Cholesterol, Calc 94 HDL Cholesterol 38 L Cholesterol/HDL Ratio 3.8 L Beta-Hydroxybutyrate/Acetoacetate TSH 2.15 Ur Collection Type Urine Color Urine Clarity Urine pH Ur Specific [place] Urine Protein Urine Glucose (UA) Urine Ketones Urine Blood Urine Nitrite Urine Bilirubin Urine Urobilinogen (Auto) Ur Leukocyte Esterase Urine RBC Urine WBC Ur Squamous Epith Cells Urine Bacteria Urine Opiates Screen Urine Fentanyl Screen Ur Barbiturates Screen U Amphetamin/Meth Scrn U Benzodiazepines Scrn U Cocaine Metab Screen U Marijuana (THC) Screen Ethyl Alcohol Quality Measures Quality Measures none Assessment & Plan Assessment Current Active Medications: Generic Name Dose Route Start Last Admin Trade Name Freq PRN Reason Stop Dose Admin Aspirin 81 mg 03/01/25 09:00 03/01/25 08:01 Aspirin Ec 81 Mg Tabec PO 03/31/25 08:59 81 mg QDAY ANGEL Administration Atorvastatin Calcium 80 mg 02/28/25 21:00 09/20/25 21:10 Atorvastatin Calcium 20 Mg Tablet PO 03/30/25 20:59 80 mg HS ANGEL Administration Dextrose 25 ml 02/28/25 21:00 Dextrose 50%-Water Inj 50 Ml Syringe IV 03/30/25 20:59 Q15MIN PRN BG 50-70 responsive npo pt Dextrose 50 ml 02/28/25 21:00 Dextrose 50%-Water Inj 50 Ml Syringe IV 03/30/25 20:59 Q15MIN PRN BG <50 OR BG <70 & pt unresponsive Glucagon 1 mg 02/28/25 21:00 Glucagon Inj 1 Mg Vial IM Q15MIN PRN BG <70, and no IV access Heparin Sodium (Porcine) 5,000 unit 02/28/25 23:45 03/01/25 08:00 Heparin Sod Inj 5000 Unit/Ml Vial SC 03/14/25 23:44 5,000 unit BID ANGEL Administration Insulin Degludec 3 unit 03/01/25 21:00 Insulin Degludec 5 Unit/0.05 Ml (Per 5 Units) SC 03/31/25 20:59 HS ANGEL Insulin Human Lispro 0 unit 02/28/25 21:00 03/01/25 07:39 Insulin Lispro (Admelog) 1 Unit/0.01 Ml Unit SC 03/30/25 20:59 Not Given [facility] Protocol Plan Mr. Stover is a 54 year-old with past medical history of type 2 diabetes who presented to the ED on 02/10/2025 with with chief complaint of weakness, nervousness and blurry vision. Admitted for CVA workup. #Blurred Vision #Generalized weakness Patient presented with 1 day of generalized weakness, nervousness and 4 to 5 days of blurry vision. Denies diaphoresis, chest palpitations and dizziness. The symptoms improved with meals and blurry vision improved after use of prescribed glasses. Patient has history of diabetes for which she does not monitor glucose check regularly. Patient presentation raise patient of possible hypoglycemic episodes. Neuro examination was normal. In the ED patient received aspirin 81 mg x 1. NIHSS Score:?0 At this point, patient's symptoms have largely resolved. This may have represented a possible TIA given the patient's higher risk with uncontrolled diabetes. Although symptom resolution with food does suggest element of hypoglycemia, he is not on any medications that could precipitate a hypoglycemic episode. Could be dehydration secondary to empagliflozen. Continue workup for TIA. Passed swallow evaluations, swallowing intact. A1c >14. Cholesterol 144 TAGS 59 LDL 94 HDL 38. TSH 2.15. CT head negative for acute hemorrhage CTA head/neck showed no significant neck artery stenosis -Neurologist Dr. Don was consulted and will follow, appreciate recommendations -Admitted to Telemetry -Head of bed elevation >45 degrees -Maintain euglycemia and normal temperature -Allow for permissive hypertension below 220/120 -Q4H neuro checks -Echocardiography with bubble study ordered -MRI brain with and without contrast ordered -Started aspirin 81 mg daily -Started atorvastatin 40 mg HS daily # Wks-buxwwdf-lcexhallm type 2 diabetes On admission glucose 275. Patient does not regularly check his own glucose. A1c >14. On metformin, empagliflozen, and pioglitazone. UA positive for 4+ glucose - Started insulin degludec 3U daily with insulin sliding scale - Glucose check ACHS - Diabetic education - A1c, pending - Beta hydroxybutyrate 0.1, #Asymptomatic bradycardia EKG showed sinus bradycardia with rate 55. Patient denies chest pain, chest palpitation and dizziness. - Continue to monitor on telemetry Hospital management: Lines: peripheral IV Diet: Carbohydrate DVT prophylaxis: Heparin SC Disposition: tele for CVA workup CODE STATUS: Full code Health Maintenance: DVT prophylaxis: Heparin SC Diet: Diabetic Adhikari: No Lines: PIV CODE STATUS: Full code Disposition: Pending MRI and Echo Patient's plan and care discussed with my attending, Dr Howell and senior resident Dr Ricardo Palomares, DO PGY-1 ([facility] Resident)
[2025-03-01] MEDS: INSULIN LISPRO (AdmeLOG) 1 UNIT/0.01 ML UNIT SC ×3 (11:59→20:16)
[2025-03-01 12:00] VITALS: BP 100/68; PULSE 58; PULSE 61; RESP 16; TEMP 36.4; O2SAT 98
--- NOTE | 2025-03-01 12:36 | PC.PT ---
PT eval only. Patient was xI with bed mobility, transfers, and ambulation with no AD. Patient is safe to ambulate to the bathroom and in the halls with no AD or staff. RN made aware.
[2025-03-01 16:00] VITALS: BP 103/68; PULSE 54; PULSE 67; RESP 17; TEMP 36.4; O2SAT 98
--- NOTE | 2025-03-01 16:11 | PC.SS ---
54YO male, reason for visit: STROKE RULE OUT. ? SS met with patient and his spouse at bedside to complete initial assessment. Role and purpose of today?s contact was explained. Patient is Greek speaking. ?Patient confirmed his demographic information. Patient stated his Primary Medical Surrogate Decision Maker is his spouse Gaye Stover [phone]. Prior to hospitalization, patient was independent with ADLs and ambulation as well. ?[facility]: [facility] PCP: Saul England, last appt. was 02/12/25. Discharge plan was discussed, patient requesting to return home when medically clear. Next of kin: Spouse Gaye Stover [phone] Discharge plan: Home, family to transport
[2025-03-01 20:00] VITALS: BP 104/63; PULSE 56; RESP 19; TEMP 36.2; O2SAT 98
[2025-03-01] MEDS: INSULIN DEGLUDEC 5 UNIT/0.05 ML (PER 5 UNITS) 3 UNIT SC (20:16)
[2025-03-01] MEDS: ATORVASTATIN CALCIUM 20 MG TABLET 80 MG PO (20:18)
[2025-03-02] VITALS: BP 94/72; PULSE 52; PULSE 55; RESP 16; TEMP 36.5; O2SAT 95
--- NOTE | 2025-03-02 | XR_ITS ---
Examinations: MRI Brain without intravenous contrast. MRI brain with intravenous contrast MRA brain with intravenous contrast. MRA brain without intravenous contrast MRA neck with intravenous contrast Date and time of exam: March 02, 2025, 1148 hours INDICATIONS: Blurred vision episodes tremors beginning 1:40 PM on 02/28/2025, stroke alert Technique: Multiple axial and sagittal images of the brain have been obtained Siemens high-resolution 1.5 Tammi short bore scanner is utilized. Sagittal sections, T1-weighted, TR 500, TE 14 Axial sections proton density and T2-weighted, TR 3,000, TE 34, TR 3,000, TE 91 Inversion recovery axial images, TR 9,260, TE 111, TI 2,500 Diffusion weighted images, axial sections, TR 4,800, TE 128, B value 1,000 Axial sections, ADC map, TR 4,800, TE 128. Contrast images have been obtained post intravenous 20 cc Gadolinium. T1-weighted axial and coronal images post contrast have been obtained. Angiographic images of neck and brain are obtained pre and post contrast. 3-D post processing performed, including brain, extracranial neck arterial maximum intensity projections Findings: Sellaturcica is not enlarged. The optic chiasm and infundibular stalk are not remarkable. Prepontine and interpeduncular cisterns are not enlarged. No localized enlargement of the medulla or bernardo. Fourth ventricle and cerebellar tonsils normal in position. Subacute hemorrhage is not seen. Fourth ventricle is midline. Mass in the cerebellopontine angle region is not evident. 7th and 8th nerve complexes exhibits symmetry. Globes are symmetrical with no retro-orbital mass. Increased white matter signal not seen Diffusion-weighted images demonstrateno focus of restricted diffusion. Mass-effect upon the ventricular system is not identified. Abnormal contrast enhancement is noted seen Right mastoiditis. MRA brain carotid images no significant carotid stenoses, no large vessel occlusions Impression: Negative for acute hemorrhage mass effect or midline shift No acute infarct No MR findings diagnostic for demyelinating disease No carotid stenoses No cerebral large vessel occlusions
[2025-03-02 04:00] VITALS: BP 103/67; PULSE 51; PULSE 52; RESP 18; TEMP 36.7; O2SAT 96
[2025-03-02 05:48] LABS: Basophils # (Auto) 0.0 Thou/mm3 (0.0-0.2); Basophils % (Auto) 1 % (0-2.5); Eosinophils # (Auto) 0.1 Thou/mm3 (0.0-0.5); Eosinophils % (Auto) 2 % (0-10); Hematocrit 41.0 % (41.0-53.0); Hemoglobin 14.1 g/dL (13.5-16.0); Immature Granulocytes Auto 0.02 Thou/mm3 (0.00-0.00); Lymphocytes # (Auto) 2.3 Thou/mm3 (1.0-4.8); Lymphocytes % (Auto) 34 % (10-50); Mean Corpuscular HGB Conc 34.4 g/dl (31.0-37.0); Mean Corpuscular Hemoglobin 32.7 pg (25.0-35.0); Mean Corpuscular Volume 95 fL (80-100); Monocytes # (Auto) 0.6 Thou/mm3 (0.0-0.8); Monocytes % (Auto) 9 % (0-12); Neutrophils # (Auto) 3.5 Thou/mm3 (1.8-7.7); Neutrophils % (Auto) 54 % (37-80); Nucleated Red Blood Cell # 0.00 Thou/mm3 (0.00-0.00); Nucleated Red Blood Cell % 0 /100 WBC (0); Platelet Count 190 Thou/mm3 (140-440); RDW Standard Deviation 43.8 fL (35.1-43.9); Red Blood Count 4.31 Miln/mm3 (4.50-5.90); White Blood Count 6.6 Thou/mm3 (3.8-10.6)
[2025-03-02 06:00] VITALS: BMI 24.7
[2025-03-02 06:11] LABS: Alanine Aminotransferase 15 U/L (10-49); Albumin, Serum 3.6 gm/dL (3.5-5.0); Albumin/Globulin Ratio 1.6 (1.2-2.2); Alkaline Phosphatase 82 U/L (46-116); Anion Gap 7 (7-16); Aspartate Amino Transferase 16 U/L (0-34); BUN/Creatinine Ratio 10 Ratio (12-20); Bilirubin,Total 1.0 mg/dL (0.3-1.2); Blood Urea Nitrogen 8 mg/dL (9-23); Calcium 9.2 mg/dL (8.3-10.6); Calcium (Corrected) 9.5 mg/dL (8.5-10.1); Carbon Dioxide 27.8 mMol/L (20.0-31.0); Chloride 107 mMol/L (98-107); Creatinine (Component) 0.8 mg/dL (0.6-1.3); Estimated Creatinine Clearance 89.4 mL/min (>60); Globulin 2.3 gm/dL (2.3-3.5); Glucose 161 mg/dL (74-106); Magnesium 1.8 mg/dL (1.6-2.6); Osmolality,Calculated 284 (275-295); Phosphorous 3.3 mg/dL (2.4-5.1); Potassium 4.1 mMol/L (3.4-5.1); Sodium 142 mMol/L (136-145); Total Protein 5.9 gm/dL (5.7-8.2); eGFR > 60 See Note
[2025-03-02 08:00] VITALS: BP 105/69; PULSE 54; PULSE 60; RESP 18; TEMP 36.2; O2SAT 98
[2025-03-02] MEDS: ASPIRIN EC 81 MG TABEC PO (08:14)
[2025-03-02] MEDS: HEPARIN SOD INJ 5000 UNIT/ML VIAL SC (08:14)
[2025-03-02] MEDS: INSULIN LISPRO (AdmeLOG) 1 UNIT/0.01 ML UNIT SC ×2 (08:14→14:57)
--- NOTE | 2025-03-02 09:50 | PD.RESPRO ---
Documentation for date of: 03/02/25 Subjective Subjective Interval history: Patient examined at bedside, DEMONDOE. Patient feeling better today. He is at baseline. Glucose has been stable, last CMP showed glc of 161. MRI today was negative for evidence of infarct, mass effect, or hemorrhage. Patient is currently on atorvastatin and aspirin. neurology consulted, pending recommendations. On 3U of degludec. Exam Vital Signs Temp Pulse Resp BP Pulse Ox O2 Del Method 97.2 F 60 18 105/69 98 Room Air 03/02/25 08:00 03/02/25 08:00 03/02/25 08:00 03/02/25 08:00 03/02/25 08:00 03/02/25 08:00 Objective Labs 03/02/25 05:15 03/02/25 05:15 Labs: Laboratory Results - last 24 hr 03/02/25 05:15 WBC 6.6 RBC 4.31 L Hgb 14.1 Hct 41.0 MCV 95 MCH 32.7 MCHC 34.4 RDW Std Deviation 43.8 Plt Count 190 Neut % (Auto) 54 Lymph % (Auto) 34 [place] % (Auto) 9 Eos % (Auto) 2 Baso % (Auto) 1 Neut # (Auto) 3.5 Lymph # (Auto) 2.3 [place] # (Auto) 0.6 Eos # (Auto) 0.1 Baso # (Auto) 0.0 Immature Gran # (Auto) 0.02 H Absolute Nucleated RBC 0.00 Immature Gran % 0 Nucleated RBC % 0 Sodium 142 Potassium 4.1 Chloride 107 Carbon Dioxide 27.8 Anion Gap 7 BUN 8 L Creatinine 0.8 Estim Creat Clear Calc 89.4 eGFR > 60 BUN/Creatinine Ratio 10 L Glucose 161 H Calculated Osmolality 284 Calcium 9.2 Corrected Calcium 9.5 Phosphorus 3.3 Magnesium 1.8 Total Bilirubin 1.0 AST 16 ALT 15 Alkaline Phosphatase 82 Total Protein 5.9 Albumin 3.6 Globulin 2.3 Albumin/Globulin Ratio 1.6 Quality Measures Quality Measures none Assessment & Plan Assessment Current Active Medications: Generic Name Dose Route Start Last Admin Trade Name Freq PRN Reason Stop Dose Admin Aspirin 81 mg 03/01/25 09:00 03/02/25 08:14 Aspirin Ec 81 Mg Tabec PO 03/31/25 08:59 81 mg QDAY ANGEL Administration Atorvastatin Calcium 80 mg 02/28/25 21:00 03/01/25 20:18 Atorvastatin Calcium 20 Mg Tablet PO 03/30/25 20:59 80 mg HS ANGEL Administration Dextrose 25 ml 02/28/25 21:00 Dextrose 50%-Water Inj 50 Ml Syringe IV 03/30/25 20:59 Q15MIN PRN BG 50-70 responsive npo pt Dextrose 50 ml 02/28/25 21:00 Dextrose 50%-Water Inj 50 Ml Syringe IV 03/30/25 20:59 Q15MIN PRN BG <50 OR BG <70 & pt unresponsive Glucagon 1 mg 02/28/25 21:00 Glucagon Inj 1 Mg Vial IM Q15MIN PRN BG <70, and no IV access Heparin Sodium (Porcine) 5,000 unit 02/28/25 23:45 03/02/25 08:14 Heparin Sod Inj 5000 Unit/Ml Vial SC 03/14/25 23:44 5,000 unit BID ANGEL Administration Insulin Degludec 3 unit 03/01/25 21:00 03/01/25 20:16 Insulin Degludec 5 Unit/0.05 Ml (Per 5 Units) SC 03/31/25 20:59 3 unit HS ANGEL Administration Insulin Human Lispro 0 unit 02/28/25 21:00 03/02/25 08:14 Insulin Lispro (Admelog) 1 Unit/0.01 Ml Unit SC 03/30/25 20:59 1 unit ACHS ANGEL Administration Protocol Plan Mr. Stover is a 54 year-old with past medical history of type 2 diabetes who presented to the ED on 02/10/2025 with with chief complaint of weakness, nervousness and blurry vision. Admitted for CVA workup. #TIA #Blurred Vision #Generalized weakness Patient presented with 1 day of generalized weakness, nervousness and 4 to 5 days of blurry vision. Denies diaphoresis, chest palpitations and dizziness. The symptoms improved with meals and blurry vision improved after use of prescribed glasses. Patient has history of diabetes for which she does not monitor glucose check regularly. Patient presentation raise patient of possible hypoglycemic episodes. Neuro examination was normal. In the ED patient received aspirin 81 mg x 1. NIHSS Score:?0 At this point, patient's symptoms have largely resolved. This is likely a TIA given the patient's high risk with uncontrolled diabetes. Although symptom resolution with food may suggest element of hypoglycemia, is on pioglitazone along with jiardiance and metformin. Could be dehydration secondary to empagliflozen. Continue workup for TIA. Passed swallow evaluations, swallowing intact. A1c >14. Cholesterol 144 TAGS 59 LDL 94 HDL 38. TSH 2.15. CT head negative for acute hemorrhage CTA head/neck showed no significant neck artery stenosis MRI negative -Neurologist Dr. Don was consulted and will follow, appreciate recommendations -Admitted to Telemetry -Head of bed elevation >45 degrees -Maintain euglycemia and normal temperature -Allow for permissive hypertension below 220/120 -Q4H neuro checks -Echocardiography with bubble study ordered, can get this done outpatient. -Started aspirin 81 mg daily -Started atorvastatin 40 mg HS daily - Likely start plavix for 21 days. - DC pioglitazone upon discharge. # [id number] type 2 diabetes On admission glucose 275. Patient does not regularly check his own glucose. A1c >14. On metformin, empagliflozen, and pioglitazone. UA positive for 4+ glucose - Started insulin degludec 3U daily with insulin sliding scale - Glucose check ACHS - Diabetic education - A1c, pending - Beta hydroxybutyrate 0.1, #Asymptomatic bradycardia EKG showed sinus bradycardia with rate 55. Patient denies chest pain, chest palpitation and dizziness. - Continue to monitor on telemetry Hospital management: Lines: peripheral IV Diet: Carbohydrate DVT prophylaxis: Heparin SC Disposition: pending neurology recommendations CODE STATUS: Full code Health Maintenance: DVT prophylaxis: Heparin SC Diet: Diabetic Adhikari: No Lines: PIV CODE STATUS: Full code Disposition: Pending neuro recommendations. Patient's plan and care discussed with my attending, Dr Howell and senior resident Dr Ricardo Palomares, DO PGY-1 ([facility] Resident)
[2025-03-02 11:10] VITALS: BMI 24.6
[2025-03-02 12:00] VITALS: BP 97/61; PULSE 59; RESP 21; TEMP 36.2; O2SAT 98
[2025-03-02] MEDS: ACETAMINOPHEN 325 MG TABLET 650 MG PO (14:56)
[2025-03-02] MEDS: LIDOCAINE 5% 1 PATCH TOP (14:57)
--- NOTE | 2025-03-02 15:33 | PC.CC ---
Met patient at bedside for DM education and insulin training; assistance from SUSIE Hughes for translation. Patient had some concerns and misconceptions RE insulin use and time was taken to appropriately address them. Patient has no personal experience with injection but states his has diabetes and uses a weekly injection and has observed her doing so. Injection technique was discussed and patient was able to self administer insulin with LATRELL Fontana with coaching. Gave verbal education and demonstration of insulin pen use and storage. Patient able to prime, select dose and administer injection into demonstration cube with coaching. Pertinent questions asked by patient and answered to his satisfaction. Encouraged insulin adherence and productive primary care. Patient has appointment with PCP on 03/26; encouraged sooner follow-up if possible.
[2025-03-02 16:00] VITALS: BP 99/71; PULSE 54; PULSE 56; RESP 22; TEMP 36.3; O2SAT 99
--- NOTE | 2025-03-02 16:52 | ESDS_ITS ---
<Statement entered by Wyatt Howell MD - 03/05/25 17:41> I reviewed above note and agree with findings and plans. I have also personally examined the patient with medicine team and went over assessment and plan with medical team including communications marketing intern and resident physician. <Statement entered by Shannon Silva MD - 03/02/25 20:09> Note reviewed, I agree with most of its contents and agree with the patient's care as documented by Dr. Palomares. The patient's management plan was discussed with my attending physician Dr. Howell. Shannon Silva, PGY-2 Planned Discharge Date 03/02/25 DS: Providers Provider Date of admission: 02/28/25 20:49 Primary care physician: Saul Aldrich MD Admitting Provider: Víctor Tucker MD Attending Provider on Admission: Wyatt Howell MD Consults: 02/28/25 17:54 Consult to Neurology / Tele-Neurology Routine Comment: Consulting Provider: [facility] 02/28/25 20:52 PT [Referral Physical Therapy] Stat Comment: Physician Instructions: Referral Speech Therapy Stat Comment: 02/28/25 20:57 Consult to Neurology / Tele-Neurology Stat Comment: Consulting Provider: Jovany Don 02/28/25 23:25 Referral Registered Dietitian Routine Comment: Instructions: stroke workup patient. Symptoms have resolved. Requesting diabetic education for poorly controlled diabetes. A1c >14 Attending Provider on DC: Wyatt Howell MD Discharging Provider: Wyatt Howell MD Anticipated date of discharge: 03/02/25 DS: Diagnosis Problem List Completed Was Problem List Reviewed/Reconciled?: Yes Hospital Course Hospital Course Hospital course: Mr. Stover is a 54 year-old with past medical history of type 2 diabetes who presented to the ED on 02/10/2025 with with chief complaint of weakness, nervousness tremors, and blurry vision. Patient stated that these episodes have passed and for the past week and they get better after he ate. At the time of assessment patient's symptoms had resolved, teleneurology consulted recommended aspirin 81 mg daily along with further metabolic workup and MRI. Head CT and CTA were negative. Admitted for CVA workup. Metabolic work up was notable for Hgb A1c of >14. Cholesterol 144, LDL 94, and HDL 38. Patient was started on 3 units of insulin degludec. MRI done on 03/02 was negative for infarct, hemorrhage, mass, midline shift, or demyelinating disease. Patient remained asymptomatic throughout his hospital stay. While his episodic symptoms may have been secondary to hypoglycemia episodes from his diabetic medications, cannot rule out TIA given his significant risk factors, namely uncontrolled diabetes. Patient was medically cleared after his negative MRI and discharged in stable condition. Recommendations: Restart metformin and jiardiance, discontinue pioglitazone. Start insulin glargine 5 units. Start aspirin and atorvastatin. F/u with PCP in 1-2 weeks. Discharge diagnoses: #TIA #Insulin-dependent type 2 diabetes #Asymptomatic bradycardia Patient's plan and care discussed with my attending, Dr Dante PATINO, and my senior Dr Ricardo PATINO. [place] Palomares, PGY-1 ([facility] Resident) Time Spent with Patient Time attestation: Total time spent providing and/or coordinating discharge services: Time spent: Greater than 30 minutes Exam Vital Signs Temp Pulse Resp BP Pulse Ox O2 Del Method 97.3 F 56 L 22 H 99/71 99 Room Air 03/02/25 16:00 03/02/25 16:00 03/02/25 16:00 03/02/25 16:00 03/02/25 16:03/02/25 16:00 Narrative Exam General: Middle aged patient, no acute distress, HEENT: Mucosa moist. Fair dentition, no oropharyngeal lesions. Pupils are equal and reactive to light bilaterally. No vertical nystagmus. Cardiovascular: Normal S1 and S2. Regular rate and rhythm. No murmur appreciated Respiratory: Clear to auscultation bilaterally without wheezes or crackles. Abdomen: Soft, nontender, not distended, Skin: Dry, no rashes or bruising Musculoskeletal: No gross injuries. Able to move all 4 extremities. Non edematous lower extremities. Neuro: Alert and oriented x3. No focal neuro deficits. Negative for pronator drift and heel to manjarrez test. Psych: Normal affect and mood Discharge Plan Plan Patient Disposition: HOME (Self Care) Patient condition on transfer: Stable Prescriptions/Referrals Prescriptions/Med Rec: New atorvastatin 20 mg Tablet 80 mg PO HS 30 Days Qty: 120 0RF aspirin 81 mg Tablet,Delayed Release (Dr/Ec) 81 mg PO QDAY 30 Days Qty: 30 0RF insulin glargine [Lantus Solostar U-100 Insulin] 100 unit/mL (3 mL) insulin pen 5 unit subcut QPM 30 Days Qty: 1.5 0RF (DME) pen needle, diabetic 29 gauge x 1/2 needle See Rx Instructions .Route Qty: 100 0RF Rx Instructions: As directed (DME) blood-glucose meter Kit See Rx Instructions .Route Qty: 1 0RF Rx Instructions: As directed (DME) Blood Glucose Test Strip See Rx Instructions .Route Qty: 50 0RF Rx Instructions: Test once daily (DME) lancets Misc See Rx Instructions .Route Qty: 100 0RF Rx Instructions: Test once daily (DME) FreeStyle Merissa 3 Plus Sensor Device See Rx Instructions .Route Qty: 2 0RF Rx Instructions: Apply every 15 days. (DME) FreeStyle Merissa 3 [place] Misc See Rx Instructions .Route Qty: 1 0RF Rx Instructions: As directed Continued metformin 500 mg tablet 850 mg PO TID Jardiance 25 mg tablet 25 mg PO QDAY Patient Comments: Patient had medication prescribed but thought that this medication was the same as another medication he was taking, therefore, patient has not taken jardiance. Discontinued pioglitazone 15 mg tablet 15 mg PO DAILY Patient Comments: TAKE 1 TABLET BY MOUTH EVERY DAY Referrals: Saul Aldrich MD [Primary Care Provider] Patient/Caregiver Discharge Instructions Other Discharge Activity Instructions:: Stop taking previous diabetic medication pioglitazone. Continue taking metformin and Jardiance as oral treatment for diabetes. You will also be started on insulin. Continue taking long acting insulin 5 units daily as treatment for diabetes. Continue taking aspirin and atorvastatin as management of stroke prevention. Follow up with your PCP in 1-2 weeks. Education Materials: A1C, Diabetes and Heart Disease, Diabetes and High Blood Pressure Print Language: Lao Stand Alone Forms: Genevieve Award Info., Patient Portal Info Letter, Work/Release Restrictions Discharge Order Discharge Orders: Discharge (Routine); Ordered 03/02/25 Ordered By: Shannon Silva Quality Discharge Quality Measures VTE prophylaxis
[2025-03-02 18:51] VITALS: BP 111/77; PULSE 60; RESP 22; TEMP 36.3; O2SAT 99
== END 2025-03-02 19:15 | disposition home or self-care (01) | DRG 47 ==
LOC: SERX 20:17 → SERHOLD 21:20 → S2NX 03-01 09:51 → SERHOLD 03-02 10:37 → S2NX 03-02 10:37
PROVIDERS: Admitting Provider Student in an Organized Health Care Education/Training Program; Emergency Provider Family Medicine; PCP Internal Medicine Nephrology; Visit Provider Internal Medicine
DX: G45.9 Transient cerebral ischemic attack, unspecified (principal); E11.649 Type 2 diabetes mellitus with hypoglycemia without coma; R00.1 Bradycardia, unspecified; Z79.84 Long term (current) use of oral hypoglycemic drugs; Z79.899 Other long term (current) drug therapy; Z79.4 Long term (current) use of insulin
CPT/HCPCS: 36415; 70450; 70496; 70498; 70553; 80053; 80061; 80307; 80320; 81001; 82010; 83036; 83735; 83880; 84100; 84443; 84484; 85025; 85610; 85730; 87086; 92610; 93306; 97162; 99285; A4649; A9577; J1644; J1815; J3490; J7030; Q9967; A9270; G0480